=== PATIENT | male | born 1990 | race African-American/Black ===

== ENCOUNTER 2017-03-03 16:56 | Emergency (ER) | payer MEDICAID ==
[~2017-03-03] VITALS: Ht 182.9 cm; Wt 131.2 kg
[~2017-03-03 16:56] MED LIST: AMOXICILLIN500 MG PO; NAPROSYN500 MG OR
[2017-03-03 17:55] VITALS: BP 134/82
== END 2017-03-03 18:09 | disposition home or self-care (01) | DRG 563 ==
LOC: ED 16:56
DX: S43.402A Unspecified sprain of left shoulder joint, initial encounter (principal); S13.9XXA Sprain of joints and ligaments of unspecified parts of neck, initial encounter; V40.5XXA Car driver injured in collision with pedestrian or animal in traffic accident, initial encounter

== ENCOUNTER 2017-03-10 00:33 | Emergency (ER) | payer MEDICAID ==
[~2017-03-10] VITALS: Ht 182.9 cm; Wt 129.2 kg
[2017-03-10] MEDS ORDERED: ULTRAM50 M1 PO (02:46)
[2017-03-10] MEDS ORDERED: AMOXICILLIN/PO500 MG PO (02:46)
[2017-03-10 03:05] VITALS: BP 129/74
== END 2017-03-10 03:07 | disposition home or self-care (01) | DRG 153 ==
LOC: ED 00:33
DX: J02.9 Acute pharyngitis, unspecified (principal); E11.9 Type 2 diabetes mellitus without complications; H66.92 Otitis media, unspecified, left ear

== ENCOUNTER 2017-06-20 03:33 | Emergency (ER) | payer OTHER ==
[~2017-06-20] VITALS: Ht 182.9 cm; Wt 137.2 kg
[~2017-06-20 03:33] MED LIST changes: +AMOXICILLIN/PO500 MG PO; +ULTRAM50 M1 PO
[2017-06-20 06:14] LABS: HEMATOCRIT 42.9 % (39.0-50.0); HEMOGLOBIN 13.3 g/dl (14.0-18.0); IMMATURE GRANULOCYTES 0.2 % (0.0-1.0); MEAN CELL VOLUME 80.5 fL CALC (80.0-100.0); NEUT# 1.92 thou/uL (1.82-7.42); RED BLOOD COUNT 5.33 mill/uL (4.70-6.10); RED CELL DISTRI WIDTH 14.4 % (11.5-15.5)
[2017-06-20 06:20] LABS: INFLUENZA A NONE DETECTED (NONE DETECT); INFLUENZA B NONE DETECTED (NONE DETECT)
[2017-06-20 06:26] LABS: ALBUMIN 4.5 g/dL (3.2-5.0); ALKALINE PHOSPHATASE 50 u/l (38-126); ANION GAP 16 (6-22 (CALC)); BILIRUBIN, TOTAL 0.4 mg/dL (0.0-1.4); BUN 13 mg/dL (9-20); BUN/CREATININE RATIO 12 (12-20 (CALC)); CALCIUM 9.9 mg/dL (8.4-10.2); CARBON DIOXIDE 27 mmol/l (22-30); CHLORIDE 104 mmol/l (95-108); CREATININE 1.1 mg/dL (0.7-1.3); GFR > 60 ML/MIN (>=60 (CALC)); GFR FOR AFR.AMER. > 60 ML/MIN (>=60 (CALC)); GLUCOSE 95 mg/dL (75-110); POTASSIUM 4.2 mmol/l (3.5-5.1); SGOT/AST 32 u/l (17-59); SGPT/ALT 54 u/l (21-72); SODIUM 143 mmol/l (137-146); TOTAL PROTEIN 7.7 g/dL (6.3-8.2)
[2017-06-20] MEDS ORDERED: Levaquin PO (07:25)
[2017-06-20] MEDS ORDERED: BENADRYL 50MG C50 MG PO (07:25)
[2017-06-20 07:27] VITALS: BP 125/80
[2017-06-20 08:57] LABS: URINE BILIRUBIN - DIPSTICK NEGATIVE (NEGATIVE); URINE BLOOD DIPSTICK NEGATIVE (NEGATIVE); URINE CLARITY CLEAR; URINE COLOR YELLOW; URINE GLUCOSE - DIPSTICK NEGATIVE (NEGATIVE); URINE KETONE NEGATIVE (NEGATIVE); URINE LEUK ESTERASE NEGATIVE (NEGATIVE); URINE NITRITE - DIPSTICK NEGATIVE (Negative); URINE PROTEIN - DIPSTICK NEGATIVE (NEG-TRACE); URINE SPECIFIC GRAVITY 1.025; URINE UROBILINOGEN - DIPSTICK 0.2 E.U./dL (0.2)
== END 2017-06-20 07:45 | disposition home or self-care (01) | DRG 916 ==
LOC: ED 03:33
PROVIDERS: Emergency Medicine
DX: T78.40XA Allergy, unspecified, initial encounter (principal); E11.9 Type 2 diabetes mellitus without complications; J32.9 Chronic sinusitis, unspecified

== ENCOUNTER 2017-10-28 00:31 | Emergency (ER) | payer MEDICAID ==
[~2017-10-28] VITALS: Ht 180.3 cm; Wt 139.8 kg
[~2017-10-28 00:31] MED LIST changes: +BENADRYL 50MG C50 MG PO; +Levaquin PO
[2017-10-28 01:58] LABS: INFLUENZA A NONE DETECTED (NONE DETECT); INFLUENZA B NONE DETECTED (NONE DETECT)
[2017-10-28] MEDS ORDERED: AMOXICILLIN500 MG PO (01:58)
[2017-10-28] MEDS ORDERED: FLONASE AL50 MCG/ACT (01:58)
[2017-10-28] MEDS ORDERED: CLARITIN10 M1 PO (01:58)
[2017-10-28 02:20] VITALS: BP 128/72
== END 2017-10-28 02:18 | disposition home or self-care (01) | DRG 153 ==
LOC: ED 00:31
PROVIDERS: Emergency Medicine
DX: J02.0 Streptococcal pharyngitis (principal); E78.5 Hyperlipidemia, unspecified; J32.9 Chronic sinusitis, unspecified; R05 Cough; R09.81 Nasal congestion; J02.9 Acute pharyngitis, unspecified

== ENCOUNTER 2018-02-10 00:01 | Emergency (ER) | payer MEDICAID ==
[~2018-02-10] VITALS: Ht 180.3 cm; Wt 131.8 kg
[~2018-02-10 00:01] MED LIST changes: +CLARITIN10 M1 PO; +FLONASE AL50 MCG/ACT
[2018-02-10 00:55] VITALS: BP 112/77
== END 2018-02-10 00:55 | disposition home or self-care (01) | DRG 951 ==
LOC: ED 00:01
DX: Z48.02 Encounter for removal of sutures (principal)

== ENCOUNTER 2018-10-22 04:35 | Emergency (ER) | payer OTHER ==
[~2018-10-22] VITALS: Ht 180.3 cm; Wt 124.4 kg
[2018-10-22 05:30] VITALS: BP 129/75
== END 2018-10-22 05:30 | disposition home or self-care (01) | DRG 605 ==
LOC: ED 04:35
DX: S61.210A Laceration without foreign body of right index finger without damage to nail, initial encounter (principal); X58.XXXA Exposure to other specified factors, initial encounter; Y93.89 Activity, other specified; Y92.149 Unspecified place in prison as the place of occurrence of the external cause

== ENCOUNTER 2020-05-19 16:03 | Emergency (ER) | payer OTHER ==
[~2020-05-19] VITALS: Ht 180.3 cm; Wt 134.1 kg
[2020-05-19] MEDS ORDERED: ZPAK PO (18:21)
[2020-05-19] MEDS ORDERED: AMOX/K CLAV875 M1 PO (18:21)
[2020-05-19 18:35] VITALS: BP 129/79
--- NOTE | 2020-05-22 08:28 | NUR ---
Notified patient of positive Covid results. Advised patient to quarantine until contacted by the [facility] with further instructions. Patient denies symptoms at this time. Advised patient to return to ED with difficulty breathing or other urgent needs. Patient verbalized understanding.
== END 2020-05-19 18:35 | disposition home or self-care (01) | DRG 177 ==
LOC: ED 16:03
DX: U07.1 COVID-19 (principal); J12.89 Other viral pneumonia

== ENCOUNTER 2020-05-27 01:36 | Emergency (ER) | payer OTHER ==
[~2020-05-27] VITALS: Ht 180.3 cm; Wt 131.0 kg
[~2020-05-27 01:36] MED LIST changes: +AMOX/K CLAV875 M1 PO; +ZPAK PO
[2020-05-27] MEDS ORDERED: CORTISPORIN OTI10 ML AD (02:17)
[2020-05-27 02:35] VITALS: BP 158/78
== END 2020-05-27 02:35 | disposition home or self-care (01) | DRG 154 ==
LOC: ED 01:36
PROC: 09C3XZZ Extirpation of Matter from Right External Auditory Canal, External Approach (ICD-10-PCS; principal; 2020-05-27)
DX: H61.21 Impacted cerumen, right ear (principal); J18.9 Pneumonia, unspecified organism

== ENCOUNTER 2021-07-20 01:49 | Emergency (ER) | payer OTHER ==
[~2021-07-20] VITALS: Ht 180.3 cm; Wt 134.0 kg
[~2021-07-20 01:49] MED LIST changes: +CORTISPORIN OTI10 ML AD
[2021-07-20] MEDS ORDERED: EAR DROPS EARWA6.5 % AU (02:06)
[2021-07-20 02:30] VITALS: BP 135/72
== END 2021-07-20 02:34 | disposition home or self-care (01) | DRG 156 ==
LOC: ED 01:49
PROC: 3E1B78Z Irrigation of Ear using Irrigating Substance, Via Natural or Artificial Opening (ICD-10-PCS; principal; 2021-07-20)
PROC: 3E1B78Z Irrigation of Ear using Irrigating Substance, Via Natural or Artificial Opening (ICD-10-PCS; 2021-07-20)
DX: H61.23 Impacted cerumen, bilateral (principal); Z86.16 Personal history of COVID-19

== ENCOUNTER 2022-02-27 13:36 | Emergency (ER) | payer OTHER ==
[~2022-02-27] VITALS: Ht 180.3 cm; Wt 131.0 kg
[~2022-02-27 13:36] MED LIST changes: +EAR DROPS EARWA6.5 % AU
[2022-02-27 13:45] VITALS: BP 126/91
[2022-02-27] MEDS ORDERED: ALL DAY10 MG PO (14:28)
[2022-02-27 14:32] VITALS: BP 126/91
== END 2022-02-27 14:37 | disposition home or self-care (01) | DRG 916 ==
LOC: ED 13:36
DX: T78.40XA Allergy, unspecified, initial encounter (principal); E66.9 Obesity, unspecified; X58.XXXA Exposure to other specified factors, initial encounter; Z86.16 Personal history of COVID-19; Z20.822 Contact with and (suspected) exposure to COVID-19